=== PATIENT | female | born 1980 | race Hispanic/Latino ===

== ENCOUNTER 2020-07-31 07:57 | Inpatient (IN) | payer MEDICAID, SELFPAY ==
[2020-07-31] MEDS: Lactated Ringer's 1,000 ML IV SCH ×2 (08:35→12:36)
[2020-07-31] MEDS ORDERED: Magnesium Sulfate 20 gm/500 ml 20 GM/500 ML BAG ONE (08:36)
[2020-07-31] MEDS ORDERED: hydrALAZINE 20 MG/ML VIAL ONE (08:37)
[2020-07-31] MEDS ORDERED: Labetalol HCl 100 MG/20 ML VIAL ONE (09:08)
[2020-07-31] MEDS ORDERED: Promethazine HCl 25 MG/ML VIAL IM PRN (09:33)
[2020-07-31] MEDS ORDERED: Ondansetron PF 4 MG/2 ML Vial IVP PRN (09:33)
[2020-07-31] MEDS ORDERED: Lidocaine 1% (PF) 30 ML VIAL SC PRN (09:33)
[2020-07-31] MEDS ORDERED: hydrALAZINE 20 MG/ML VIAL SLOW IVP PRN ×3 (09:33→15:32)
[2020-07-31] MEDS ORDERED: Calcium Gluc 4.6 MEQ/10 ML (100 MG/ML) SLOW IVP PRN (09:41)
[2020-07-31] MEDS ORDERED: Labetalol HCl 100 MG/20 ML VIAL SLOW IVP ONE (09:43)
[2020-07-31] MEDS ORDERED: Magnesium Sulfate 20 gm/500 ml 20 GM/500 ML BAG IVPB SCH (09:45)
[2020-07-31] MEDS ORDERED: Magnesium Sulfate 20 GM/WATER 500 ML BAG IVPB SCH (09:45)
[2020-07-31 09:52] LABS: Hemoglobin 13.6 g/dL (12.0-15.5); Mean Corpuscular HGB CONC 33.8 g/dL (32.0-36.0); Mean Corpuscular Hemoglobin 30.8 pg (27.0-33.0); Mean Corpuscular Volume 91.2 fl (81.6-98.3); Mean Platelet Volume 12.7 fl (7.4-10.4); Platelet Count 236 10x3/uL (150-450); RBC Distribution Width 12.9 % (11.5-14.5); Red Blood Cell (RBC) Count 4.41 10x6/uL (3.90-5.03); White Blood Cell (WBC) Count 12.7 10x3/uL (3.5-10.5)
[2020-07-31] MEDS ORDERED: NS w/ Oxytocin 30 units 500 ML IVPB PRN ×2 (10:04→16:17)
[2020-07-31 10:43] LABS: Hep B Surf Ag Non-Reactive S/CO (NonReactive); Syphilis Antibody Nonreactive (Nonreactive); Syphilis Antibody Index 0.04 S/CO (<1.00 Non-Reactive)
[2020-07-31 10:53] LABS: HBSAg Index 0.11 S/CO (0-0.99)
[2020-07-31 11:34] LABS: SARS-CoV-2 NAA Rapid Test Not Detected (NotDetected)
[2020-07-31 13:07] VITALS: BMI 38.2
[2020-07-31 13:10] LABS: ALT (SGPT) 12 U/L (8-55); AST (SGOT) 14 U/L (5-34); Albumin 3.5 g/dL (3.5-5.0); Alkaline Phosphatase 236 U/L (40-110); Anion Gap 17 mmol/L (10-20); BUN (Urea Nitrogen) 13 mg/dL (7.0-18.7); Bilirubin, Total 0.2 mg/dL (0.2-1.2); Calc. Creatinine Clearance 174 mL/min (70-130); Calcium 8.8 mg/dL (7.8-10.44); Carbon Dioxide 17 mmol/L (22-29); Chloride 107 mmol/L (98-107); Globulin 3.3 g/dL (2.4-3.5); Glucose 102 mg/dL (70-105); Potassium 3.9 mmol/L (3.5-5.1); Protein, Total 6.8 g/dL (6.0-8.3); Sodium 137 mmol/L (136-145)
[2020-07-31] MEDS ORDERED: Misoprostol 200 MCG TAB ONE (15:07)
[2020-07-31] MEDS ORDERED: Milk Of Magnesia 30 ML UDCUP PO PRN (15:32)
[2020-07-31] MEDS ORDERED: Adacel (T-DAP) 0.5 ML SYRINGE IM ONE (15:32)
[2020-07-31] MEDS ORDERED: Bisacodyl 10 MG SUPP PR PRN (15:32)
[2020-07-31] MEDS ORDERED: Misoprostol 200 MCG TAB PR PRN (15:42)
[2020-07-31 15:52] LABS: Bilirubin Neg (Negative); Blood, Urine 50 (Negative); Clarity Slightly Cloudy (Clear); Glucose, Urine (Dipstick) Normal (Negative); Ketone, Urine 5 mg/dL (Negative); Leukocyte 500 (Negative); Nitrite Positive (Negative); Protein, Urine (Dipstick) 15 mg/dl (Neg-Trace); Urobilinogen Normal mg/dL (Less than 2)
[2020-07-31 16:00] LABS: Amphetamine Not Detected (NotDetected); Barbiturates Screen Not Detected (NotDetected); Benzodiazepine Screen Not Detected (NotDetected); Cocaine Metabolite Screen Not Detected (NotDetected); Methadone Not Detected (NotDetected); Methamphetamine Not Detected (NotDetected); Opiate Screen Not Detected (NotDetected); Oxycodone Screen Not Detected (NotDetected); Phencyclidine (PCP) Not Detected (NotDetected); THC/Cannabinoid Screen Not Detected (NotDetected); Tricyclic Screen Not Detected (NotDetected)
[2020-07-31 16:08] LABS: Bacteria/HPF 3+ HPF (None Seen); Squamous Epithelial 0-3 HPF (0-3)
[2020-07-31] MEDS ORDERED: NS w/ Oxytocin 30 units 500 ML IVPB SCH ×2 (16:30)
[2020-07-31 16:36] LABS: Hemoglobin A1c 5.2 % (4.0-6.0)
[2020-07-31 17:20] LABS: HBSAB Concentration Less than 8.00 mIU/mL; Hep B Surf AB Non-Reactive (NonReactive)
[2020-07-31 17:31] LABS: HIV (1/2) Antibody/Antigen Non-Reactive (NonReactive); HIV 1/2 INDEX 0.12 S/CO (<1.00); Hep C IgG Ab Non-Reactive (NonReactive); Hep C Index 0.07 S/CO (0-0.79)
[2020-07-31] MEDS: Acetaminophen 500 MG TAB PO PRN (18:22)
[2020-08-01] MEDS: Acetaminophen 500 MG TAB PO PRN ×5 (00:22→23:59)
[2020-08-01] MEDS: Lactated Ringer's 1,000 ML IV SCH (02:46)
[2020-08-01 07:57] LABS: Hemoglobin 11.5 g/dL (12.0-15.5); Mean Corpuscular HGB CONC 34.5 g/dL (32.0-36.0); Mean Corpuscular Hemoglobin 31.8 pg (27.0-33.0); Mean Platelet Volume 12.2 fl (7.4-10.4); Platelet Count 184 10x3/uL (150-450); RBC Distribution Width 13.3 % (11.5-14.5); Red Blood Cell (RBC) Count 3.62 10x6/uL (3.90-5.03); White Blood Cell (WBC) Count 11.2 10x3/uL (3.5-10.5)
[2020-08-01] MEDS ORDERED: Digoxin 0.5 MG/2 ML AMP SLOW IVP SCH (11:00)
[2020-08-01] MEDS ORDERED: Lisinopril 5 MG TAB PO SCH (11:00)
[2020-08-01] MEDS ORDERED: Carvedilol 6.25 MG TAB PO SCH ×2 (11:00→17:00)
[2020-08-01] MEDS ORDERED: cefTRIAXone\\ROCEPHIN 1 GM in Sodium Chloride 0.9% 100 ML IVPB SCH (11:30)
[2020-08-01] MEDS ORDERED: cefTRIAXone\\ROCEPHIN 1 GM VIAL IM SCH (11:45)
[2020-08-01] MEDS ORDERED: Lidocaine 1% (PF) 30 ML VIAL ONE (11:54)
[2020-08-01] MEDS: Ampicillin/Sulbactam 3 GM in Sodium Chloride 0.9% 100 ML IVPB SCH ×2 (14:10→20:12)
[2020-08-01] MEDS ORDERED: Metoprolol Tartrate 5 MG/5 ML VIAL IVP PRN (14:48)
[2020-08-01] MEDS ORDERED: Labetalol HCl 100 MG/20 ML VIAL SLOW IVP PRN (14:52)
[2020-08-01] MEDS: Ferrous Sulfate 325 MG TAB PO SCH ×2 (17:26→18:08)
[2020-08-01] MEDS: Docusate Calcium (SURFAK) 240 MG CAP PO SCH ×3 (17:27→20:13)
[2020-08-01] MEDS: Prenatal Vitamin 1 TAB PO SCH (17:28)
[2020-08-01] MEDS ORDERED: Ivabradine 5 MG TAB PO SCH (17:30)
[2020-08-02] MEDS: Ampicillin/Sulbactam 3 GM in Sodium Chloride 0.9% 100 ML IVPB SCH ×4 (01:15→20:02)
[2020-08-02 03:41] LABS: #Monocytes 0.7 10x3/uL (0.0-1.1); #Neutrophils 11.6 10x3/uL (1.5-8.4); %Basophils 0.2 % (0.0-2.0); %Eosinophils 0.1 % (0.0-6.0); %Lymphocytes 7.3 % (18.0-47.0); %Monocytes 5.5 % (0.0-10.0); %Neutrophils 86.5 % (40.0-75.0); Hemoglobin 10.5 g/dL (12.0-15.5); Mean Corpuscular HGB CONC 33.7 g/dL (32.0-36.0); Mean Corpuscular Hemoglobin 31.7 pg (27.0-33.0); Mean Corpuscular Volume 94.3 fl (81.6-98.3); Mean Platelet Volume 11.6 fl (7.4-10.4); Platelet Count 166 10x3/uL (150-450); RBC Distribution Width 13.8 % (11.5-14.5); Red Blood Cell (RBC) Count 3.31 10x6/uL (3.90-5.03); White Blood Cell (WBC) Count 13.4 10x3/uL (3.5-10.5)
[2020-08-02 03:53] LABS: ALT (SGPT) 19 U/L (8-55); AST (SGOT) 21 U/L (5-34); Albumin 2.7 g/dL (3.5-5.0); Alkaline Phosphatase 170 U/L (40-110); Anion Gap 14 mmol/L (10-20); BUN (Urea Nitrogen) 7 mg/dL (7.0-18.7); Bilirubin, Total 0.6 mg/dL (0.2-1.2); Calc. Creatinine Clearance 185 mL/min (70-130); Calcium 7.9 mg/dL (7.8-10.44); Carbon Dioxide 22 mmol/L (22-29); Chloride 105 mmol/L (98-107); Globulin 2.8 g/dL (2.4-3.5); Glucose 103 mg/dL (70-105); Protein, Total 5.5 g/dL (6.0-8.3); Sodium 137 mmol/L (136-145)
[2020-08-02] MEDS: Acetaminophen 500 MG TAB PO PRN ×4 (04:31→22:37)
[2020-08-02] MEDS ORDERED: Carvedilol 3.125 MG TAB PO SCH (08:00)
[2020-08-02] MEDS: Lactated Ringer's 1,000 ML IV SCH ×2 (08:06→14:35)
[2020-08-02] MEDS: Ivabradine 5 MG TAB PO SCH ×2 (08:24→20:03)
[2020-08-02] MEDS: Ferrous Sulfate 325 MG TAB PO SCH ×2 (08:24→17:34)
[2020-08-02] MEDS ORDERED: Lisinopril 5 MG TAB PO SCH ×2 (09:00)
[2020-08-02] MEDS: Docusate Calcium (SURFAK) 240 MG CAP PO SCH ×2 (09:28→22:37)
[2020-08-02] MEDS: Prenatal Vitamin 1 TAB PO SCH (09:28)
[2020-08-02] MEDS: Carvedilol 3.125 MG TAB PO SCH (17:34)
[2020-08-03] MEDS: Ampicillin/Sulbactam 3 GM in Sodium Chloride 0.9% 100 ML IVPB SCH ×4 (02:23→19:40)
[2020-08-03] MEDS: Acetaminophen 500 MG TAB PO PRN ×3 (04:25→20:53)
[2020-08-03] MEDS: Lactated Ringer's 1,000 ML IV SCH ×2 (04:30→19:30)
[2020-08-03 07:32] LABS: #Monocytes 0.7 10x3/uL (0.0-1.1); #Neutrophils 7.8 10x3/uL (1.5-8.4); %Basophils 0.2 % (0.0-2.0); %Eosinophils 0.2 % (0.0-6.0); %Lymphocytes 9.2 % (18.0-47.0); %Monocytes 7.1 % (0.0-10.0); %Neutrophils 82.8 % (40.0-75.0); Hemoglobin 10.1 g/dL (12.0-15.5); Mean Corpuscular HGB CONC 33.6 g/dL (32.0-36.0); Mean Corpuscular Hemoglobin 31.3 pg (27.0-33.0); Mean Corpuscular Volume 93.2 fl (81.6-98.3); Mean Platelet Volume 11.7 fl (7.4-10.4); Platelet Count 173 10x3/uL (150-450); RBC Distribution Width 13.6 % (11.5-14.5); Red Blood Cell (RBC) Count 3.23 10x6/uL (3.90-5.03); White Blood Cell (WBC) Count 9.4 10x3/uL (3.5-10.5)
[2020-08-03] MEDS ORDERED: Acetaminophen 500 MG TAB PO PRN (07:55)
[2020-08-03] MEDS ORDERED: Ibuprofen 400 MG TAB PO PRN (07:57)
[2020-08-03] MEDS ORDERED: Carvedilol 6.25 MG TAB PO SCH ×3 (08:30→17:00)
[2020-08-03] MEDS: Ferrous Sulfate 325 MG TAB PO SCH ×2 (08:59→16:19)
[2020-08-03] MEDS ORDERED: Carvedilol 3.125 MG TAB PO SCH ×2 (09:00→17:00)
[2020-08-03] MEDS ORDERED: Lisinopril 2.5 MG TAB PO SCH (09:00)
[2020-08-03] MEDS: Ivabradine 5 MG TAB PO SCH ×2 (09:00→21:00)
[2020-08-03] MEDS: Carvedilol 3.125 MG TAB PO SCH (09:00)
[2020-08-03] MEDS: Prenatal Vitamin 1 TAB PO SCH (10:47)
[2020-08-03] MEDS: Docusate Calcium (SURFAK) 240 MG CAP PO SCH ×2 (10:47→22:07)
[2020-08-03] MEDS: cefTRIAXone\\ROCEPHIN 1 GM in Sodium Chloride 0.9% 100 ML IVPB SCH (12:19)
[2020-08-04] MEDS: Ampicillin/Sulbactam 3 GM in Sodium Chloride 0.9% 100 ML IVPB SCH (03:09)
[2020-08-04] MEDS: Acetaminophen 500 MG TAB PO PRN ×2 (03:10→10:38)
[2020-08-04] MEDS ORDERED: Carvedilol 6.25 MG TAB PO SCH ×2 (10:00→17:00)
[2020-08-04] MEDS: Ivabradine 5 MG TAB PO SCH (10:24)
[2020-08-04] MEDS: Ferrous Sulfate 325 MG TAB PO SCH (10:24)
[2020-08-04] MEDS: Docusate Calcium (SURFAK) 240 MG CAP PO SCH (10:32)
[2020-08-04] MEDS: Prenatal Vitamin 1 TAB PO SCH (10:32)
[2020-08-04] MEDS: cefTRIAXone\\ROCEPHIN 1 GM in Sodium Chloride 0.9% 100 ML IVPB SCH (11:22)
[2020-08-04] MEDS: Lactated Ringer's 1,000 ML IV SCH (11:43)
[2020-08-04 12:29] VITALS: TEMP 98.9
[2020-08-04 15:54] VITALS: BP 163/91
== END 2020-08-04 13:30 | disposition home or self-care (01) | DRG 806 ==
LOC: CSHLD/OP 07:57 → CSHLD 08:38 → CSHIMCU 08-01 17:47 → CSHTELE 08-02 11:17
PROVIDERS: ADMIT Emergency Medicine; ATTEND Emergency Medicine
PROC: 4A0HXCZ Measurement of Products of Conception, Cardiac Rate, External Approach (ICD-10-PCS; principal; 2020-07-31)
PROC: 10E0XZZ Delivery of Products of Conception, External Approach (ICD-10-PCS; 2020-07-31)
PROC: 10H07YZ Insertion of Other Device into Products of Conception, Via Natural or Artificial Opening (ICD-10-PCS; 2020-07-31)
PROC: 3E033VJ Introduction of Other Hormone into Peripheral Vein, Percutaneous Approach (ICD-10-PCS; 2020-07-31)
PROC: 0HQ9XZZ Repair Perineum Skin, External Approach (ICD-10-PCS; 2020-07-31)
DX: O11.4 Pre-existing hypertension with pre-eclampsia, complicating childbirth (principal); I42.0 Dilated cardiomyopathy; Z37.0 Single live birth; I50.22 Chronic systolic (congestive) heart failure; Z16.11 Resistance to penicillins; Z3A.40 40 weeks gestation of pregnancy; E66.9 Obesity, unspecified; O99.214 Obesity complicating childbirth; O99.892 Other specified diseases and conditions complicating childbirth; O99.42 Diseases of the circulatory system complicating childbirth; R00.0 Tachycardia, unspecified; O70.0 First degree perineal laceration during delivery; B96.20 Unspecified Escherichia coli [E. coli] as the cause of diseases classified elsewhere; O86.20 Urinary tract infection following delivery, unspecified; O85 Puerperal sepsis; O72.1 Other immediate postpartum hemorrhage
CPT/HCPCS: 36415; 36416; 71045; 80053; 80306; 81001; 82570; 83036; 83880; 84443; 85025; 85027; 86706; 86762; 86780; 86803; 86850; 86900; 86901; 87040; 87077; 87086; 87186; 87340; 87389; 88307; 93005; 93010; 93306; 99285; J0295; J0360; J0696; J1160; J2590; J3475; J3490; U0002

== ENCOUNTER 2021-12-13 05:46 | Inpatient (IN) | payer MEDICAID, SELFPAY ==
[2021-12-13] MEDS ORDERED: hydrALAZINE 20 MG/ML VIAL SLOW IVP PRN ×2 (06:31→06:33)
[2021-12-13] MEDS ORDERED: Ondansetron PF 4 MG/2 ML Vial IVP PRN (06:33)
[2021-12-13] MEDS ORDERED: Lidocaine 1% (PF) 30 ML VIAL SC PRN (06:33)
[2021-12-13] MEDS ORDERED: Ibuprofen 800 MG TAB PO PRN (06:33)
[2021-12-13] MEDS ORDERED: Calcium Gluc 4.6 MEQ/10 ML (100 MG/ML) SLOW IVP PRN (06:33)
[2021-12-13] MEDS ORDERED: Labetalol HCl 100 MG/20 ML VIAL SLOW IVP PRN (06:33)
[2021-12-13] MEDS ORDERED: Lorazepam 2 MG/ML VIAL SLOW IVP PRN (06:33)
[2021-12-13] MEDS ORDERED: Promethazine HCl 25 MG/ML VIAL IM PRN (06:33)
[2021-12-13] MEDS ORDERED: Docusate 100 MG CAP PO PRN (06:33)
[2021-12-13] MEDS ORDERED: hydrALAZINE 20 MG/ML VIAL ONE (06:38)
[2021-12-13] MEDS ORDERED: Magnesium Sulfate 20 gm/500 ml 20 GM/500 ML BAG ONE (06:48)
[2021-12-13] MEDS ORDERED: Misoprostol 200 MCG TAB PR PRN (06:53)
[2021-12-13] MEDS ORDERED: Carboprost 250 MCG/ML AMP IM PRN (06:53)
[2021-12-13] MEDS ORDERED: Tranexamic Acid 1,000 MG/10 ML VIAL IVP PRN (06:57)
[2021-12-13] MEDS ORDERED: Magnesium Sulfate 20 gm/500 ml 20 GM/500 ML BAG IVPB SCH ×2 (07:00→19:01)
[2021-12-13] MEDS ORDERED: NS w/ Oxytocin 30 units 500 ML IV SCH (07:00)
[2021-12-13 07:03] LABS: Hemoglobin 13.5 g/dL (12.0-15.5); Mean Corpuscular HGB CONC 34.5 g/dL (32.0-36.0); Mean Corpuscular Hemoglobin 30.8 pg (27.0-33.0); Mean Corpuscular Volume 89.1 fl (81.6-98.3); Platelet Count 250 10x3/uL (150-450); RBC Distribution Width 13.1 % (11.5-14.5); Red Blood Cell (RBC) Count 4.39 10x6/uL (3.90-5.03); White Blood Cell (WBC) Count 14.1 10x3/uL (3.5-10.5)
[2021-12-13] MEDS: Magnesium Sulfate 20 gm/500 ml 20 GM/500 ML BAG IVPB SCH ×2 (07:04→17:17)
[2021-12-13 07:33] LABS: ALT (SGPT) 12 U/L (8-55); AST (SGOT) 25 U/L (5-34); Albumin 3.5 g/dL (3.5-5.0); Alkaline Phosphatase 230 U/L (40-110); Anion Gap 18 mmol/L (10-20); BUN (Urea Nitrogen) 10 mg/dL (7.0-18.7); Bilirubin, Total 0.4 mg/dL (0.2-1.2); Calc. Creatinine Clearance 0 mL/min (70-130); Carbon Dioxide 17 mmol/L (22-29); Chloride 106 mmol/L (98-107); Estimated GFR 115; Globulin 3.6 g/dL (2.4-3.5); Glucose 100 mg/dL (70-105); Potassium 5.2 mmol/L (3.5-5.1); Protein, Total 7.1 g/dL (6.0-8.3); Sodium 136 mmol/L (136-145)
[2021-12-13 07:43] LABS: HBSAg Index 0.23 S/CO (0-0.99); Hep B Surf Ag Non-Reactive S/CO (NonReactive)
[2021-12-13 07:49] LABS: Syphilis Antibody Nonreactive (Nonreactive); Syphilis Antibody Index 0.05 S/CO (<1.00 Non-Reactive)
[2021-12-13] MEDS: NS w/ Oxytocin 30 units 500 ML IV SCH ×2 (08:06→09:41)
[2021-12-13 08:47] VITALS: BMI 35.5
[2021-12-13 09:37] LABS: Amphetamine Not Detected (NotDetected); Barbiturates Screen Not Detected (NotDetected); Benzodiazepine Screen Not Detected (NotDetected); Cocaine Metabolite Screen Not Detected (NotDetected); Methadone Not Detected (NotDetected); Methamphetamine Not Detected (NotDetected); Opiate Screen Not Detected (NotDetected); Oxycodone Screen Not Detected (NotDetected); Phencyclidine (PCP) Not Detected (NotDetected); THC/Cannabinoid Screen Not Detected (NotDetected); Tricyclic Screen Not Detected (NotDetected)
[2021-12-13 09:47] LABS: Creatinine, Urine 114.27 mg/dL (47-110)
[2021-12-13 11:01] LABS: HIV (1/2) Antibody/Antigen Non-Reactive (NonReactive); HIV 1/2 INDEX 0.08 S/CO (<1.00)
[2021-12-13] MEDS ORDERED: Labetalol HCl 100 MG TAB PO SCH ×2 (11:30→21:00)
[2021-12-13] MEDS ORDERED: Preparation H Ointment 28 GM TUBE PR PRN (12:02)
[2021-12-13] MEDS ORDERED: Benzocaine-Menthol 82.5 ML CAN TOP PRN (12:02)
[2021-12-13] MEDS ORDERED: Boostrix 0.5 ML (Tdap) VIAL (>/=7 yrs of age) IM ONE (12:02)
[2021-12-13] MEDS ORDERED: Bisacodyl 10 MG SUPP PR PRN (12:02)
[2021-12-13] MEDS ORDERED: Lanolin Ointment 7 GM TUBE TOP PRN (12:02)
[2021-12-13] MEDS ORDERED: Prenatal Vitamin 1 TAB PO SCH (12:30)
[2021-12-13] MEDS ORDERED: Lisinopril 5 MG TAB PO SCH (13:00)
[2021-12-13 13:12] LABS: SARS-CoV-2 NAA Rapid Test Not Detected (NotDetected)
[2021-12-13] MEDS ORDERED: Ivabradine 5 MG TAB PO SCH (14:00)
[2021-12-13] MEDS: Acetaminophen 325 MG TAB PO PRN (14:30)
[2021-12-13] MEDS: Lactated Ringer's 1,000 ML IV SCH (18:32)
[2021-12-13] MEDS: Carvedilol 6.25 MG TAB PO SCH (18:41)
[2021-12-13] MEDS: Ivabradine 5 MG TAB PO SCH (23:59)
[2021-12-14] MEDS: Acetaminophen 325 MG TAB PO PRN ×4 (01:37→21:49)
[2021-12-14] MEDS: Lactated Ringer's 1,000 ML IV SCH ×4 (04:48→23:21)
[2021-12-14 07:35] LABS: Hemoglobin 11.6 g/dL (12.0-15.5)
[2021-12-14] MEDS: Carvedilol 6.25 MG TAB PO SCH ×2 (08:26→16:28)
[2021-12-14] MEDS ORDERED: Lisinopril 5 MG TAB PO SCH (09:00)
[2021-12-14] MEDS: Valsartan 80 MG TAB PO SCH (09:24)
[2021-12-14] MEDS: Ivabradine 5 MG TAB PO SCH ×2 (09:25→20:29)
[2021-12-14] MEDS: Prenatal Vitamin 1 TAB PO SCH (09:27)
[2021-12-14 11:15] LABS: #Eosinphils 0.1 10x3/uL (0.0-0.5); #Monocytes 0.5 10x3/uL (0.0-1.1); #Neutrophils 7.6 10x3/uL (1.5-8.4); %Basophils 0.4 % (0.0-2.0); %Eosinophils 0.5 % (0.0-6.0); %Neutrophils 71.6 % (40.0-75.0); Hemoglobin 11.6 g/dL (12.0-15.5); Mean Corpuscular HGB CONC 33.1 g/dL (32.0-36.0); Mean Corpuscular Hemoglobin 30.8 pg (27.0-33.0); Mean Corpuscular Volume 92.8 fl (81.6-98.3); Mean Platelet Volume 12.3 fl (7.4-10.4); Platelet Count 233 10x3/uL (150-450); RBC Distribution Width 13.9 % (11.5-14.5); Red Blood Cell (RBC) Count 3.77 10x6/uL (3.90-5.03); White Blood Cell (WBC) Count 10.7 10x3/uL (3.5-10.5)
[2021-12-14] MEDS: Ferrous Sulfate 325 MG TAB PO SCH ×3 (13:34→16:24)
[2021-12-14 14:30] LABS: ALT (SGPT) 16 U/L (8-55); AST (SGOT) 25 U/L (5-34); Alkaline Phosphatase 182 U/L (40-110); Anion Gap 13 mmol/L (10-20); BUN (Urea Nitrogen) 7 mg/dL (7.0-18.7); Bilirubin, Total 0.4 mg/dL (0.2-1.2); Calc. Creatinine Clearance 165 mL/min (70-130); Calcium 8.7 mg/dL (7.8-10.44); Carbon Dioxide 24 mmol/L (22-29); Chloride 105 mmol/L (98-107); Estimated GFR 109; Globulin 2.9 g/dL (2.4-3.5); Glucose 101 mg/dL (70-105); Potassium 4.7 mmol/L (3.5-5.1); Protein, Total 5.9 g/dL (6.0-8.3); Sodium 137 mmol/L (136-145)
[2021-12-14] MEDS ORDERED: hydrALAZINE 20 MG/ML VIAL SLOW IVP SCH (20:45)
[2021-12-14] MEDS ORDERED: Labetalol HCl 200 MG TAB PO SCH (21:00)
[2021-12-14] MEDS ORDERED: NIFEdipine 10 MG CAP ONE (21:42)
[2021-12-14] MEDS ORDERED: NIFEdipine 10 MG CAP PO SCH (21:45)
[2021-12-14] MEDS ORDERED: Ibuprofen 800 MG TAB PO PRN (21:57)
[2021-12-14] MEDS ORDERED: Sodium Chloride 0.9% 500 ML IV SCH (23:30)
[2021-12-15] MEDS: Lactated Ringer's 1,000 ML IV SCH (05:43)
[2021-12-15] MEDS: Acetaminophen 325 MG TAB PO PRN ×2 (06:40→16:06)
[2021-12-15] MEDS: Ferrous Sulfate 325 MG TAB PO SCH (06:58)
[2021-12-15] MEDS: Carvedilol 12.5 MG TAB PO SCH ×2 (07:32→16:05)
[2021-12-15] MEDS: Ivabradine 5 MG TAB PO SCH ×2 (08:42→20:41)
[2021-12-15] MEDS: Prenatal Vitamin 1 TAB PO SCH (08:43)
[2021-12-15] MEDS: Valsartan 80 MG TAB PO SCH (10:17)
[2021-12-15] MEDS ORDERED: hydrALAZINE 20 MG/ML VIAL SLOW IVP SCH ×2 (21:00)
[2021-12-16] MEDS: Acetaminophen 325 MG TAB PO PRN ×3 (01:22→21:49)
[2021-12-16] MEDS ORDERED: Carvedilol 25 MG TAB PO SCH (09:00)
[2021-12-16] MEDS: Prenatal Vitamin 1 TAB PO SCH (09:52)
[2021-12-16] MEDS: Ferrous Sulfate 325 MG TAB PO SCH ×2 (09:53→16:58)
[2021-12-16] MEDS: Carvedilol 12.5 MG TAB PO SCH (10:20)
[2021-12-16] MEDS: Valsartan 80 MG TAB PO SCH (11:04)
[2021-12-16] MEDS: Ivabradine 5 MG TAB PO SCH (11:05)
[2021-12-16] MEDS ORDERED: Digoxin 0.125 MG TAB PO SCH (12:00)
[2021-12-16] MEDS: Carvedilol 25 MG TAB PO SCH (17:05)
[2021-12-17] MEDS: Acetaminophen 325 MG TAB PO PRN (05:49)
[2021-12-17 07:36] VITALS: BP 144/80; TEMP 98.3
[2021-12-17] MEDS ORDERED: hydrALAZINE 25 MG TAB PO SCH (09:00)
[2021-12-17] MEDS ORDERED: Digoxin 0.125 MG TAB PO SCH (09:00)
[2021-12-17] MEDS: Prenatal Vitamin 1 TAB PO SCH (09:33)
[2021-12-17] MEDS: Carvedilol 25 MG TAB PO SCH (09:34)
[2021-12-17] MEDS: Valsartan 80 MG TAB PO SCH (09:34)
[2021-12-17] MEDS: Ferrous Sulfate 325 MG TAB PO SCH (09:35)
== END 2021-12-17 11:00 | disposition home or self-care (01) | DRG 805 ==
LOC: CSHLD/OP 05:46 → CSHLD 08:18 → CSHPP 12-14 11:17
PROVIDERS: ADMIT Obstetrics & Gynecology; ATTEND Obstetrics & Gynecology
PROC: 10E0XZZ Delivery of Products of Conception, External Approach (ICD-10-PCS; principal; 2021-12-13)
DX: O99.42 Diseases of the circulatory system complicating childbirth (principal); O41.1230 Chorioamnionitis, third trimester, not applicable or unspecified; Z37.0 Single live birth; I42.9 Cardiomyopathy, unspecified; I50.22 Chronic systolic (congestive) heart failure; Z20.822 Contact with and (suspected) exposure to COVID-19; Z3A.39 39 weeks gestation of pregnancy; Z79.899 Other long term (current) drug therapy; O36.63X0 Maternal care for excessive fetal growth, third trimester, not applicable or unspecified; E66.01 Morbid (severe) obesity due to excess calories; O99.214 Obesity complicating childbirth; O69.81X0 Labor and delivery complicated by cord around neck, without compression, not applicable or unspecified; O11.4 Pre-existing hypertension with pre-eclampsia, complicating childbirth; O10.12 Pre-existing hypertensive heart disease complicating childbirth; Z91.14 Patient's other noncompliance with medication regimen; I95.9 Hypotension, unspecified
CPT/HCPCS: 36415; 51702; 80053; 80306; 82570; 84156; 85014; 85018; 85027; 86762; 86780; 86850; 86900; 86901; 87340; 87389; 88307; 93306; 99285; J0360; J2001; J2590; J3475; J3490; J7030; J7120; U0002

== ENCOUNTER 2024-03-29 16:17 | Emergency (ER) | payer MEDICAID, SELFPAY ==
[2024-03-29 17:10] LABS: #Basophils 0.06 10x3/uL (0.0-0.2); #Eosinophils 0.01 10x3/uL (0.0-0.5); #Monocytes 0.43 10x3/uL (0.0-1.1); %Basophils 0.4 % (0.0-2.0); %Eosinophils 0.1 % (0.0-6.0); %Lymphocytes 13.6 % (18.0-47.0); %Neutrophils 82.4 % (40.0-75.0); Hematocrit 40.7 % (34.9-44.5); Mean Corpuscular HGB CONC 34.4 g/dL (32.0-36.0); Mean Corpuscular Hemoglobin 29.1 pg (27.0-33.0); Mean Corpuscular Volume 84.6 fL (81.6-98.3); Mean Platelet Volume 11.7 fL (7.4-10.4); Platelet Count 360 10x3/uL (150-450); RBC Distribution Width 12.7 % (11.5-14.5); Red Blood Cell (RBC) Count 4.81 10x6/uL (3.90-5.03); White Blood Cell (WBC) Count 14.3 10x3/uL (3.5-10.5)
[2024-03-29 17:18] LABS: PTT 26.8 sec (22.0-33.0); Prothrombin Time 10.8 sec (9.5-12.1)
[2024-03-29 17:24] LABS: ALT (SGPT) 25 U/L (8-55); AST (SGOT) 27 U/L (5-34); Albumin 4.2 g/dL (3.5-5.0); Alkaline Phosphatase 173 U/L (40-110); Anion Gap 17 mmol/L (10-20); BUN (Urea Nitrogen) 10 mg/dL (7.0-18.7); Bilirubin, Total 0.5 mg/dL (0.2-1.2); Calc. Creatinine Clearance 0 mL/min (70-130); Calcium 9.8 mg/dL (7.8-10.44); Carbon Dioxide 21 mmol/L (22-29); Chloride 104 mmol/L (98-107); Estimated GFR 103; Glucose 130 mg/dL (70-105); Potassium 3.2 mmol/L (3.5-5.1); Protein, Total 8.2 g/dL (6.0-8.3); Sodium 139 mmol/L (136-145)
[2024-03-29] MEDS ORDERED: Ondansetron PF 4 MG/2 ML Vial ONE (17:53)
[2024-03-29] MEDS ORDERED: Morphine 4 MG/ML VIAL ONE (17:53)
[2024-03-29 18:28] LABS: Troponin I Less than 0.010 ng/mL (< 0.028)
[2024-03-29] MEDS ORDERED: Ketorolac Tromethamine 30 MG (1 mL) VIAL ONE (18:48)
[2024-03-29 19:12] LABS: Bilirubin Neg (Negative); Blood, Urine Negative (Negative); Clarity Clear (Clear); Glucose, Urine (Dipstick) Normal (Negative); Ketone, Urine 50 mg/dL (Negative); Leukocyte 100 (Negative); Nitrite Negative (Negative); Protein, Urine (Dipstick) 15 mg/dl (Neg-Trace); Specific Gravity, Urine 1.015 (1.005-1.030); Urobilinogen Normal mg/dL (Less than 2); pH, Urine 6.5 (5.0-9.0)
[2024-03-29] MEDS ORDERED: Ampicillin/Sulbactam 3 GM in Sodium Chloride 0.9% 100 ML IVPB SCH (20:00)
[2024-03-29 20:12] LABS: CAUTI Indications for Culture Fever or rigors; RBC/HPF 0-3 HPF (0-3)
[2024-03-29 20:13] LABS: Squamous Epithelial 0-3 HPF (0-3)
[2024-03-29 20:14] LABS: Bacteria/HPF 3+ HPF (None Seen); Mucous/LPF 1+ LPF (<2+); Urine Culture Reflex No No
[2024-03-29] MEDS ORDERED: Dexamethasone 10 MG/ML VIAL ONE (20:15)
== END 2024-03-29 22:59 | disposition short-term general hospital (02) ==
LOC: CSHERS 16:17
DX: K04.7 Periapical abscess without sinus (principal)
CPT/HCPCS: 36415; 70487; 80053; 81001; 83605; 84484; 85025; 85610; 85730; 87040; 87149; 93005; 96361; 96365; 96375; J0295; J1100; J1885; J2272; J2405

== ENCOUNTER 2025-04-13 07:04 | Emergency (ER) | payer SELFPAY ==
[2025-04-13] MEDS ORDERED: Ketorolac Tromethamine 30 MG (1 mL) VIAL ONE (07:21)
[2025-04-13] MEDS ORDERED: Ondansetron PF 4 MG/2 ML Vial ONE (07:21)
[2025-04-13 07:34] LABS: #Basophils 0.06 10x3/uL (0.0-0.2); #Eosinophils 0.09 10x3/uL (0.0-0.5); #Monocytes 0.55 10x3/uL (0.0-1.1); #Neutrophils 6.57 10x3/uL (1.5-8.4); %Basophils 0.5 % (0.0-2.0); %Eosinophils 0.8 % (0.0-6.0); %Lymphocytes 33.6 % (18.0-47.0); %Monocytes 5.0 % (0.0-10.0); %Neutrophils 59.8 % (40.0-75.0); Hematocrit 39.4 % (34.9-44.5); Hemoglobin 12.9 g/dL (12.0-15.5); Mean Corpuscular Hemoglobin 28.2 pg (27.0-33.0); Mean Corpuscular Volume 86.0 fL (81.6-98.3); Platelet Count 326 10x3/uL (150-450); Red Blood Cell (RBC) Count 4.58 10x6/uL (3.90-5.03); White Blood Cell (WBC) Count 10.99 10x3/uL (3.5-10.5)
[2025-04-13 07:53] LABS: ALT (SGPT) 39 U/L (Less than 34); AST (SGOT) 30 U/L (11-34); Albumin 3.9 g/dL (3.1-4.5); Alkaline Phosphatase 179 U/L (40-110); Anion Gap 16 mmol/L (10-20); BUN (Urea Nitrogen) 18 mg/dL (7.0-18.7); Bilirubin, Total 0.2 mg/dL (0.3-1.2); Calc. Creatinine Clearance 0 mL/min (70-130); Calcium 9.4 mg/dL (7.8-10.44); Carbon Dioxide 22 mmol/L (22-29); Chloride 107 mmol/L (98-107); Globulin 3.7 g/dL (2.4-3.5); Glucose 133 mg/dL (70-105); Potassium 3.5 mmol/L (3.5-5.1); Sodium 141 mmol/L (136-145)
[2025-04-13 07:55] LABS: Troponin I Less than 0.010 ng/mL (< 0.028)
== END 2025-04-13 08:40 | disposition home or self-care (01) ==
LOC: CSHERS 07:04
DX: J06.9 Acute upper respiratory infection, unspecified (principal); B97.89 Other viral agents as the cause of diseases classified elsewhere; I10 Essential (primary) hypertension
CPT/HCPCS: 36415; 71045; 80053; 83605; 84484; 85025; 93005; 96374; 96375; J1885; J2405

== ENCOUNTER 2025-04-15 18:15 | Emergency (ER) | payer SELFPAY ==
[2025-04-15] MEDS ORDERED: Carvedilol 3.125 MG TAB PO SCH (20:00)
[2025-04-15 22:28] LABS: #Basophils 0.06 10x3/uL (0.0-0.2); #Eosinophils 0.05 10x3/uL (0.0-0.5); #Monocytes 0.52 10x3/uL (0.0-1.1); #Neutrophils 6.69 10x3/uL (1.5-8.4); %Basophils 0.6 % (0.0-2.0); %Eosinophils 0.5 % (0.0-6.0); %Lymphocytes 20.8 % (18.0-47.0); %Monocytes 5.6 % (0.0-10.0); %Neutrophils 72.1 % (40.0-75.0); Hematocrit 40.6 % (34.9-44.5); Hemoglobin 13.5 g/dL (12.0-15.5); Mean Corpuscular Hemoglobin 28.1 pg (27.0-33.0); Mean Corpuscular Volume 84.4 fL (81.6-98.3); Platelet Count 317 10x3/uL (150-450); Red Blood Cell (RBC) Count 4.81 10x6/uL (3.90-5.03); White Blood Cell (WBC) Count 9.29 10x3/uL (3.5-10.5)
[2025-04-15 22:52] LABS: ALT (SGPT) 25 U/L (Less than 34); AST (SGOT) 20 U/L (11-34); Albumin 3.9 g/dL (3.1-4.5); Alkaline Phosphatase 173 U/L (40-110); Anion Gap 16 mmol/L (10-20); BUN (Urea Nitrogen) 13 mg/dL (7.0-18.7); Bilirubin, Total 0.5 mg/dL (0.3-1.2); Calc. Creatinine Clearance 0 mL/min (70-130); Calcium 9.2 mg/dL (7.8-10.44); Carbon Dioxide 21 mmol/L (22-29); Chloride 106 mmol/L (98-107); Globulin 3.6 g/dL (2.4-3.5); Glucose 105 mg/dL (70-105); Potassium 4.0 mmol/L (3.5-5.1); Sodium 139 mmol/L (136-145)
[2025-04-15 22:58] LABS: Troponin I Less than 0.010 ng/mL (< 0.028)
== END 2025-04-15 23:30 | disposition home or self-care (01) ==
LOC: CSHERS 18:15
DX: H66.91 Otitis media, unspecified, right ear (principal); I10 Essential (primary) hypertension
CPT/HCPCS: 80053; 83880; 84484; 85025; 93005; 96374; 96375; J2060